=== PATIENT | female | born 1955 | race Hispanic/Latino ===

== ENCOUNTER 2016-12-22 19:48 | Observation (INO) | payer OTHER ==
[~2016-12-22] VITALS: Ht 162.6 cm; Wt 80.0 kg
[~2016-12-22 19:48] MED LIST: CLARITIN10 M1 PO; FIORICET PO; NASONEX50 MCG/AC; PERCOCET 5/325M1 TAB PO; TUSSIN100 MG/5 M OR; TYLENOL 500MG TAB PO; ULTRAM50 MG OR; [UNRECOGNIZED DRUG - CODE] OR; [UNRECOGNIZED DRUG - CODE] PO; [UNRECOGNIZED DRUG - OTHER] OP
[2016-12-22 20:36] LABS: HEMATOCRIT 48.6 % (37.0-47.0); HEMOGLOBIN 16.3 g/dl (12.0-16.0); IMMATURE GRANULOCYTES 0.4 % (0.0-1.0); MEAN CORPUSCULAR HGB 29.5 pG CALC (26.0-32.0); MEAN CORPUSCULAR HGB CONC 33.5 g/L CALC (32.0-36.0); NEUT# 9.78 thou/uL (2.00-7.15); RED BLOOD COUNT 5.52 mill/uL (4.20-5.60); RED CELL DISTRI WIDTH 12.2 % (11.5-15.5)
[2016-12-22 20:43] LABS: ALBUMIN 5.2 g/dL (3.2-5.0); ALKALINE PHOSPHATASE 100 u/l (38-126); ANION GAP 22 (6-22 (CALC)); BUN 10 mg/dL (8-23); BUN/CREATININE RATIO 15 (12-20 (CALC)); CALCIUM 10.3 mg/dL (8.4-10.2); CARBON DIOXIDE 22 mmol/l (22-30); CHLORIDE 105 mmol/l (95-108); CREATININE 0.7 mg/dL (0.5-1.0); GFR > 60 ML/MIN (>=60 (CALC)); GFR FOR AFR.AMER. > 60 ML/MIN (>=60 (CALC)); GLUCOSE 109 mg/dL (82-115); SGOT/AST 35 u/l (9-36); SGPT/ALT 45 u/l (11-66); SODIUM 144 mmol/l (137-146); TOTAL PROTEIN 8.7 g/dL (6.3-8.2)
[2016-12-22 20:44] LABS: AMYLASE 92 u/l (30-110); LIPASE 130 u/l (23-300)
[2016-12-22 20:47] LABS: ACT PARTIAL THROMBO TIME 26.3 SECONDS (20.0-32.5); INTERNATIONAL NORMALIZED RATIO 0.9 RATIO (0.7-1.3)
[2016-12-22 20:55] LABS: MYOGLOBIN 38 ng/mL (0 - 62)
[2016-12-22 22:15] LABS: URINE BILIRUBIN - DIPSTICK NEGATIVE (NEGATIVE); URINE BLOOD DIPSTICK TRACE-INTACT (NEGATIVE); URINE CLARITY CLEAR; URINE COLOR YELLOW; URINE GLUCOSE - DIPSTICK NEGATIVE (NEGATIVE); URINE KETONE NEGATIVE (NEGATIVE); URINE LEUK ESTERASE TRACE (NEGATIVE); URINE NITRITE - DIPSTICK NEGATIVE (Negative); URINE PROTEIN - DIPSTICK TRACE mg/dL (NEG-TRACE); URINE UROBILINOGEN - DIPSTICK 0.2 E.U./dL (0.2)
[2016-12-22 22:17] LABS: BARBITURATES NEGATIVE (NEGATIVE); COCAINE NEGATIVE (NEGATIVE); METHADONE NEGATIVE (NEGATIVE); OXCYCODONE NEGATIVE (NEGATIVE); TETRAHYDROCANNABIONOL NEGATIVE (NEGATIVE); TRICYLIC ANTIDEPRESSANTS NEGATIVE (NEGATIVE)
[2016-12-22 23:29] VITALS: BP 147/81
[2016-12-23 00:07] VITALS: BP 124/73
[2016-12-23 03:01] LABS: CHOLESTEROL HDL RATIO 2.9 (<4.4 (CALC))
[2016-12-23 03:16] LABS: ANION GAP 14 (6-22 (CALC)); BUN 10 mg/dL (8-23); BUN/CREATININE RATIO 16 (12-20 (CALC)); CALCIUM 8.9 mg/dL (8.4-10.2); CARBON DIOXIDE 25 mmol/l (22-30); CHLORIDE 108 mmol/l (95-108); CREATININE 0.6 mg/dL (0.5-1.0); GFR > 60 ML/MIN (>=60 (CALC)); GFR FOR AFR.AMER. > 60 ML/MIN (>=60 (CALC)); GLUCOSE 109 mg/dL (82-115); MAGNESIUM 1.8 mg/dL (1.6-2.3); POTASSIUM 4.4 mmol/l (3.5-5.1); SODIUM 142 mmol/l (137-146)
[2016-12-23 04:06] VITALS: BP 101/63
[2016-12-23 07:50] VITALS: BP 97/49
[2016-12-23] MEDS ORDERED: TRAMADOL HCL50 MG PO (11:57)
[2016-12-23] MEDS ORDERED: ADLT ASA LOW81 MG PO (11:57)
[2016-12-23] MEDS ORDERED: OFLOXACIN0.31 AU (11:59)
== END 2016-12-23 13:55 | disposition home or self-care (01) | DRG 313 ==
LOC: ED 19:48 → ED-I 22:25 → ED 22:37 → MS2 22:38
PROVIDERS: Emergency Medicine; ADMIT Internal Medicine; ATTEND Internal Medicine
DX: R07.9 Chest pain, unspecified (principal); H92.21 Otorrhagia, right ear; R51 Headache; Z88.6 Allergy status to analgesic agent
CPT/HCPCS: G0378; S0164